=== PATIENT | female | born 1950 | race Caucasian/White ===

== ENCOUNTER 2018-06-07 16:02 | Outpatient (CLI) | payer BC | END 2018-06-07 16:03 | disposition home or self-care (01) | LOC: BICMAMMO 16:02 | PROVIDERS: ATTEND Family Medicine | DX: Z12.31 Encounter for screening mammogram for malignant neoplasm of breast (principal); Z80.3 Family history of malignant neoplasm of breast | CPT/HCPCS: 77063; 77067 ==

== ENCOUNTER 2019-03-03 15:31 | Outpatient (CLI) | payer BC ==
--- NOTE | 2019-03-03 15:52 | RAD ---
XR Lumbar Spine 2 Or 3 View: 03/03/2019 12:00 AM CLINICAL INDICATION: Low back pain COMPARISON: None. FINDINGS: Fracture:No fracture. Arthropathy:Multilevel mild endplate degenerative changes. There is multilevel facet arthritis, great est inferiorly Incidental findings:Bilateral tubal ligation clips There is mild dextrocurvature of the mid lumbar spine, and accentuation of lumbar lordosis. IMPRESSION: 1. No acute osseous abnormality. 2. Multilevel mild degenerative change.
== END 2019-03-03 15:32 | disposition home or self-care (01) ==
LOC: SCSRAD 15:31
PROVIDERS: ATTEND Family Medicine
DX: M54.5 Low back pain (principal); M47.816 Spondylosis without myelopathy or radiculopathy, lumbar region
CPT/HCPCS: 72100

== ENCOUNTER 2019-07-25 15:31 | Outpatient (CLI) | payer MEDICARE, BC ==
--- NOTE | 2019-07-25 16:07 | RAD ---
Frontal and lateral imaging of the thoracic spine: 07/25/2019 COMPARISON: None History: Mid thoracic back pain, reports back riding lessons for one month FINDINGS: Age-indeterminate anterior wedge compression fractures are present at T7 and T8 with 33% an d 30% loss of vertebral body height respectively. No additional fracture is noted. IMPRESSION: Age-indeterminate anterior wedge compression fractures of T7 and T8 as detailed above.
== END 2019-07-25 15:32 | disposition home or self-care (01) ==
LOC: SCSRAD 15:31
PROVIDERS: ATTEND Family Medicine
DX: M54.6 Pain in thoracic spine (principal)
CPT/HCPCS: 72072

== ENCOUNTER 2019-08-17 08:36 | Outpatient (CLI) | payer MEDICARE, BC ==
--- NOTE | 2019-08-17 11:04 | MRI ---
MRI OF THORACIC SPINE WITHOUT CONTRAST: INDICATION: Wedge compression fracture thoracic spine. Back pain. COMPARISON: Comparison is made to plain films of thoracic spine 07/25/2019. FINDINGS: MRI shows an anterior wedge compression fracture at T6. This was labeled as T7 on the plain film but is T6 as counted from the 7th cervical vertebrae. There is mild edema within this vertebral body wh ich would suggest subacute compression deformity or injury. Mild wedging at T7; however, no significant edema is seen within T7 vertebra. The other thoracic vertebrae maintain normal height and alignment. Minimal disk bulge at T5, T6, and T7 mildly flattens the thecal sac but do not impinge on the cord or produce central canal stenosis. IMPRESSION: 1. Superior end plate compression with mild wedging of T6 vertebra results in loss of anterior heigh t in the 15-20% range. There is edema within this vertebra suggesting acute or subacute compression. 2. Mild anterior wedging at T7 without edema. POS: OFF
== END 2019-08-17 08:37 | disposition home or self-care (01) ==
LOC: SCSMRI 08:36
PROVIDERS: ATTEND Family Medicine
DX: S22.000A Wedge compression fracture of unspecified thoracic vertebra, initial encounter for closed fracture (principal); R60.0 Localized edema
CPT/HCPCS: 72146

== ENCOUNTER 2019-09-22 14:23 | Outpatient (CLI) | payer BC, MEDICARE ==
--- NOTE | 2019-09-22 15:19 | BD ---
DEXA BONE DENSITY SCAN: DATE: 09/22/2019. COMPARISON: None. HISTORY: Postmenopausal female undergoing screening for osteoporosis. FINDINGS: Lumbar Spine: BMD (g/cm2) L1 0.809 T-Score: -1.6 L2 0.836 T-Score: -1.7 L3 0.926 T-Score: -1.4 L4 0.864 T-Score: -1.8 L1-L4 0.860 T-Score: -1.7 Femoral Neck: 0.647 T-Score: -1.8 Total 0.906 T-Score: 0.3 FRAX-WHO fracture risk assessment tool is not reported secondary to a history of prior hip or vertebr al fracture. IMPRESSION: Osteopenia within the femoral neck and lumbar spine correlating with a moderately increased risk for fracture. Transcribed Date/Time: 09/22/2019 3:28 PM
== END 2019-09-22 14:24 | disposition home or self-care (01) ==
LOC: BICMAMMO 14:23
PROVIDERS: ATTEND Family Medicine
DX: M80.00XD Age-related osteoporosis with current pathological fracture, unspecified site, subsequent encounter for fracture with routine healing (principal); M85.89 Other specified disorders of bone density and structure, multiple sites
CPT/HCPCS: 77080

== ENCOUNTER 2020-03-26 14:13 | Outpatient (CLI) | payer MEDICARE, BC ==
--- NOTE | 2020-03-26 14:56 | RAD ---
Exam: XR Foot Lt 3 View STANDARD HISTORY: Acute right ankle and foot pain. COMPARISON: None FINDINGS: No acute fracture, dislocation, or other acute osseous abnormality is identified. IMPRESSION: No acute osseous abnormality is identified.
--- NOTE | 2020-03-26 15:07 | RAD ---
Exam: XR Ankle Lt 3 View STANDARD HISTORY: Acute right ankle and foot pain. Horse stepped on foot and ankle. COMPARISON: None FINDINGS: The ankle mortise is congruent. No acute fracture, dislocation, or other acute osseous abnormality is identified. IMPRESSION: No acute osseous abnormality is identified. If patient's symptoms persist, follow-up imaging is advis ed.
== END 2020-03-26 14:14 | disposition home or self-care (01) ==
LOC: SCSRAD 14:13
PROVIDERS: ATTEND Family Medicine
DX: M79.671 Pain in right foot (principal); M25.571 Pain in right ankle and joints of right foot

== ENCOUNTER 2021-03-24 17:23 | Inpatient (IN) | payer OTHER, BC, MEDICARE ==
[2021-03-24 19:05] LABS: #Eosinphils 0.1 thou/uL (0.0-0.7); #Lymphocytes 1.1 thou/uL (1.20-3.40); #Neutrophils 9.9 thou/uL (1.40-6.50); %Basophils 0.2 % (0.0-1.0); %Eosinophils 0.6 % (0.0-10.0); %Lymphocytes 9.1 % (21.0-51.0); %Monocytes 8.1 % (0.0-10.0); Hemoglobin 14.8 g/dL (12.0-16.0); Mean Corpuscular Hemoglobin 32.2 pg (27.0-31.0); Mean Platelet Volume 9.3 fL (7.4-10.4); Platelet Count 148 thou/uL (130-400); RBC Distribution Width 13.1 % (11.5-14.5); Red Blood Cell (RBC) Count 4.58 mill/uL (4.20-5.40); White Blood Cell (WBC) Count 12.1 thou/uL (4.8-10.8)
[2021-03-24 19:20] LABS: PTT 28.8 sec (22.9-36.1); Prothrombin Time 13.5 sec (12.0-14.7)
[2021-03-24 19:28] LABS: ALT (SGPT) 28 U/L (8-55); AST (SGOT) 22 U/L (5-34); Albumin 4.2 g/dL (3.4-4.8); Alkaline Phosphatase 56 U/L (40-110); Anion Gap 12 mmol/L (10-20); BUN (Urea Nitrogen) 13 mg/dL (9.8-20.1); Bilirubin, Total 0.5 mg/dL (0.2-1.2); Calc. Creatinine Clearance 0 mL/min (70-130); Calcium 9.5 mg/dL (7.8-10.44); Carbon Dioxide 27 mmol/L (23-31); Chloride 108 mmol/L (98-107); Globulin 2.6 g/dL (2.4-3.5); Glucose 101 mg/dL (80-115); Lipase 43 U/L (8-78); Potassium 4.1 mmol/L (3.5-5.1); Protein, Total 6.8 g/dL (5.8-8.1); Sodium 143 mmol/L (136-145)
[2021-03-24] MEDS ORDERED: Morphine 2 MG/ML VIAL SLOW IVP PRN (21:10)
[2021-03-24] MEDS ORDERED: hydrALAZINE 20 MG/ML VIAL SLOW IVP PRN (21:10)
[2021-03-24] MEDS ORDERED: traMADol HCl 50 MG TAB PO PRN ×2 (21:10)
[2021-03-24] MEDS ORDERED: Dextrose 50% Abboject 50 ML SYRINGE SLOW IVP PRN (21:10)
[2021-03-24] MEDS ORDERED: Ondansetron PF 4 MG/2 ML Vial IVP PRN (21:10)
[2021-03-24] MEDS ORDERED: Ketorolac Tromethamine 30 MG/ML VIAL IVP SCH (21:10)
[2021-03-24] MEDS ORDERED: Cyclobenzaprine 10 MG TAB PO PRN (21:10)
[2021-03-24] MEDS ORDERED: Ondansetron ODT 4 MG TAB PO PRN (21:10)
[2021-03-24] MEDS ORDERED: Dextrose 5% in Water 1,000 ML IV PRN (21:10)
[2021-03-24] MEDS: Acetaminophen 325 MG TAB PO SCH (21:32)
[2021-03-24] MEDS ORDERED: Famotidine 20 MG TAB PO SCH (21:45)
[2021-03-24 23:13] LABS: SARS-CoV-2 NAA Rapid Test Not Detected (NotDetected)
[2021-03-24 23:46] VITALS: BMI 20.9
[2021-03-25] MEDS: Sodium Chloride 0.9% 1,000 ML IV SCH ×2 (03:19→05:16)
[2021-03-25] MEDS: Acetaminophen 325 MG TAB PO SCH ×4 (05:17→20:42)
[2021-03-25 06:23] LABS: #Eosinphils 0.1 thou/uL (0.0-0.7); #Lymphocytes 1.2 thou/uL (1.20-3.40); #Monocytes 0.7 thou/uL (0.11-0.59); #Neutrophils 4.5 thou/uL (1.40-6.50); %Basophils 0.7 % (0.0-1.0); %Eosinophils 1.7 % (0.0-10.0); %Lymphocytes 18.1 % (21.0-51.0); %Monocytes 10.1 % (0.0-10.0); %Neutrophils 69.5 % (42.0-75.0); Hemoglobin 12.9 g/dL (12.0-16.0); Mean Corpuscular HGB CONC 33.5 g/dL (32.0-36.0); Mean Corpuscular Hemoglobin 32.3 pg (27.0-31.0); Mean Corpuscular Volume 96.5 fL (78.0-98.0); Mean Platelet Volume 9.9 fL (7.4-10.4); Platelet Count 140 thou/uL (130-400); RBC Distribution Width 13.1 % (11.5-14.5); White Blood Cell (WBC) Count 6.5 thou/uL (4.8-10.8)
[2021-03-25 06:49] LABS: Anion Gap 9 mmol/L (10-20); BUN (Urea Nitrogen) 12 mg/dL (9.8-20.1); Calc. Creatinine Clearance 80 mL/min (70-130); Calcium 8.6 mg/dL (7.8-10.44); Carbon Dioxide 26 mmol/L (23-31); Chloride 111 mmol/L (98-107); Glucose 79 mg/dL (80-115); Magnesium 1.8 mg/dL (1.6-2.6); Phosphorus 2.8 mg/dL (2.3-4.7); Potassium 3.8 mmol/L (3.5-5.1); Sodium 142 mmol/L (136-145)
[2021-03-25] MEDS ORDERED: CEFAZOLIN 2 GM in Premix Bag 1 BAG IVPB SCH (07:15)
[2021-03-25] MEDS: Polyethylene Glycol 3350 17 GM Packet PO SCH (12:55)
[2021-03-25] MEDS: Senokot S 8.6-50 MG TAB PO SCH ×2 (12:55→20:43)
[2021-03-25] MEDS: Famotidine 20 MG TAB PO SCH ×2 (12:55→20:42)
[2021-03-25] MEDS ORDERED: Sodium Chloride 0.9% 1,000 ML IV SCH (13:12)
[2021-03-25] MEDS ORDERED: Magnesium 2 GM/50 ML 2 GM in Premix Bag 1 BAG IVPB SCH (14:15)
[2021-03-25] MEDS ORDERED: Fentanyl 100 MCG/2 ML VIAL ONE ×2 (15:52→17:23)
[2021-03-25] MEDS ORDERED: Ondansetron PF 4 MG/2 ML Vial ONE (16:16)
[2021-03-25] MEDS ORDERED: Dexamethasone 20 MG/5 ML VIAL ONE (16:16)
[2021-03-25] MEDS ORDERED: Ketorolac Tromethamine 30 MG/ML VIAL ONE (16:16)
[2021-03-25] MEDS ORDERED: Glycopyrrolate 0.2 MG/ML 5 ML SYRINGE ONE (16:16)
[2021-03-25] MEDS ORDERED: diphenhydrAMINE 50 MG/ML VIAL ONE (16:16)
[2021-03-25] MEDS ORDERED: Rocuronium Bromide 10 MG/ML (10ML VIAL) ONE (16:16)
[2021-03-25] MEDS ORDERED: PROPOFOL 200 MG/20 ML VIAL ONE (16:16)
[2021-03-25] MEDS ORDERED: Promethazine HCl 25 MG/ML VIAL IM PRN (16:52)
[2021-03-25] MEDS ORDERED: Promethazine HCl 25 MG/ML VIAL SLOW IVP PRN (16:52)
[2021-03-25] MEDS ORDERED: Ondansetron HCl/PF 4 MG/2 ML Vial IVP PRN ×2 (16:52→17:09)
[2021-03-25] MEDS ORDERED: HYDROmorphone 2 MG/ML VIAL SLOW IVP PRN (16:52)
[2021-03-25] MEDS ORDERED: Morphine Sulfate 2 MG/ML SYRINGE SLOW IVP PRN (17:09)
[2021-03-25] MEDS: CEFAZOLIN 2 GM in Premix Bag 1 BAG IVPB SCH (23:56)
[2021-03-26] MEDS: Acetaminophen 325 MG TAB PO SCH ×4 (04:33→21:39)
[2021-03-26 05:45] LABS: #Lymphocytes 0.5 thou/uL (1.20-3.40); #Monocytes 0.6 thou/uL (0.11-0.59); #Neutrophils 9.5 thou/uL (1.40-6.50); %Basophils 0.4 % (0.0-1.0); %Eosinophils 0.2 % (0.0-10.0); %Monocytes 5.7 % (0.0-10.0); %Neutrophils 88.6 % (42.0-75.0); Hemoglobin 13.7 g/dL (12.0-16.0); Mean Corpuscular Hemoglobin 32.5 pg (27.0-31.0); Mean Corpuscular Volume 95.5 fL (78.0-98.0); Mean Platelet Volume 9.3 fL (7.4-10.4); Platelet Count 145 thou/uL (130-400); RBC Distribution Width 12.9 % (11.5-14.5); Red Blood Cell (RBC) Count 4.22 mill/uL (4.20-5.40); White Blood Cell (WBC) Count 10.7 thou/uL (4.8-10.8)
[2021-03-26 06:05] LABS: Anion Gap 9 mmol/L (10-20); BUN (Urea Nitrogen) 11 mg/dL (9.8-20.1); Calc. Creatinine Clearance 70 mL/min (70-130); Carbon Dioxide 25 mmol/L (23-31); Chloride 109 mmol/L (98-107); Potassium 4.5 mmol/L (3.5-5.1); Sodium 138 mmol/L (136-145)
[2021-03-26 06:06] LABS: Glucose 147 mg/dL (80-115); Magnesium 2.4 mg/dL (1.6-2.6); Phosphorus 2.9 mg/dL (2.3-4.7)
[2021-03-26] MEDS: CEFAZOLIN 2 GM in Premix Bag 1 BAG IVPB SCH (09:06)
[2021-03-26] MEDS: Famotidine 20 MG TAB PO SCH ×2 (09:06→20:54)
[2021-03-26] MEDS: Senokot S 8.6-50 MG TAB PO SCH ×2 (09:06→20:54)
[2021-03-26] MEDS: Polyethylene Glycol 3350 17 GM Packet PO SCH (09:06)
[2021-03-26] MEDS: Ibuprofen 200 MG TAB PO PRN ×2 (09:07→16:44)
[2021-03-26] MEDS: Aspirin 81 mg Enteric Coated Tablet PO SCH ×2 (09:07→20:54)
[2021-03-27] MEDS: Acetaminophen 325 MG TAB PO SCH ×2 (04:02→08:31)
[2021-03-27] MEDS: Polyethylene Glycol 3350 17 GM Packet PO SCH (08:30)
[2021-03-27] MEDS: Senokot S 8.6-50 MG TAB PO SCH (08:31)
[2021-03-27] MEDS: Famotidine 20 MG TAB PO SCH (08:31)
[2021-03-27] MEDS: Aspirin 81 mg Enteric Coated Tablet PO SCH (08:31)
[2021-03-27] MEDS: Ibuprofen 200 MG TAB PO PRN (08:33)
[2021-03-27 14:44] VITALS: BP 134/68; TEMP 98.4
== END 2021-03-27 14:52 | DRG 482 ==
LOC: ERS 17:23 → SURG B 19:59
PROVIDERS: ADMIT Surgery; ATTEND Surgery
PROC: 0QH634Z Insertion of Internal Fixation Device into Right Upper Femur, Percutaneous Approach (ICD-10-PCS; principal; 2021-03-25)
DX: S72.011A Unspecified intracapsular fracture of right femur, initial encounter for closed fracture (principal); W01.0XXA Fall on same level from slipping, tripping and stumbling without subsequent striking against object, initial encounter; Z20.822 Contact with and (suspected) exposure to COVID-19; Y93.K1 Activity, walking an animal; Z90.89 Acquired absence of other organs; Z98.51 Tubal ligation status
CPT/HCPCS: 36415; 71045; 76000; 80048; 80053; 83690; 83735; 84100; 85025; 85610; 85730; 86850; 86900; 86901; 93005; C1713; C1769; J0690; J1100; J1200; J1885; J2405; J2704; J3010; J3475; U0002; U0005

== ENCOUNTER 2023-03-02 07:58 | Outpatient (CLI) | payer MEDICARE, BC | END 2023-03-02 07:59 | disposition home or self-care (01) | LOC: BICMRI 07:58 | PROVIDERS: ATTEND Psychiatry & Neurology Neurology | DX: G20 Parkinson's disease (principal) | CPT/HCPCS: 70551 ==

== ENCOUNTER 2024-05-02 14:30 | Outpatient (CLI) | payer MEDICARE | END 2024-05-02 14:31 | disposition home or self-care (01) | LOC: SCSMRI 14:30 | PROVIDERS: ATTEND Nurse Practitioner Family | DX: M48.02 Spinal stenosis, cervical region (principal) | CPT/HCPCS: 72141 ==

== ENCOUNTER 2024-10-02 12:46 | Outpatient (CLI) | payer MEDICARE | END 2024-10-02 12:47 | disposition home or self-care (01) | PROVIDERS: ATTEND Psychiatry & Neurology Neurology | DX: R00.1 Bradycardia, unspecified (principal) | CPT/HCPCS: 93225; 93226 ==

== ENCOUNTER 2025-09-24 11:50 | Outpatient (CLI) | payer MEDICARE | END 2025-09-24 11:51 | disposition home or self-care (01) | LOC: SCSRAD 11:50 | PROVIDERS: ATTEND Student in an Organized Health Care Education/Training Program | DX: M25.512 Pain in left shoulder (principal) ==